=== PATIENT | male | born 1940 | race Caucasian/White ===

== ENCOUNTER → 2017-01-20 12:27 | Outpatient (CLI) | payer MEDICARE, BC ==
[2011-12-19 11:09] VITALS: BMI 2965.9
[~2017-01-20 12:27] MED LIST: ATIVAN1 MG PO; BETAPACE 80 MG80 MG PO; CYMBALTA60 MG PO; FLOMAX0.4 MG PO; HYDROCODON-ACE1 EAC7 PO; NORVASC10 MG PO; PEPCID40 MG PO; VITAMIN B COMPL1 TAB PO
[2017-02-11 08:56] VITALS: BMI 29.1
== END | disposition home or self-care (01) ==
LOC: D.CT 12:27
DX: R05 Cough (principal); G64 Other disorders of peripheral nervous system

== ENCOUNTER 2017-02-11 11:59 | Day surgery (SDC) | payer MEDICARE, BC ==
[~2017-02-11] VITALS: Ht 182.9 cm; Wt 97.3 kg
[2017-02-11 07:52] LABS: BASOPHILS 0.3 % (0.0-2.0); EOSINOPHILS 4.7 % (0-7); HEMATOCRIT 40.9 % (42.0-54.0); HEMOGLOBIN 12.9 g/dL (13.5-17.5); IMMATURE GRANULOCYTES 0.3 % (0-5); LYMPHOCYTES 29.2 % (15-50); MCH 27.7 pg (26.0-34.0); MCHC 31.5 g/dL (31.0-37.0); MEAN PLATELET VOLUME 9.9 fL (7.4-10.4); MONOCYTES 10.6 % (2-11); NEUTROPHILS 54.9 % (40-80); PLATELET COUNT 215 10x3/uL (130-400); RBC 4.65 10x6/uL (4.20-6.10); RDW 14.8 % (11.5-14.5); WBC 6.2 10x3/uL (4.8-10.8)
[2017-02-11 08:07] LABS: ANION GAP 13.6 mmol/L (8-16); CALCIUM 9.1 mg/dL (8.5-10.1); CARBON DIOXIDE 26.4 mmol/L (21.0-32.0); CREATININE - SERUM 1.1 mg/dL (0.6-1.3)
[2017-02-11 08:56] VITALS: BP 132/77; Ht 182.9 cm; Wt 97.3 kg
--- NOTE | 2017-02-11 11:48 | NUR ---
1130 IV DC WITH CATHER INTACT
--- NOTE | 2017-03-11 14:51 | OP ---
PATIENT NAME: MARY BHAKTA MEDICAL RECORD: [id number] :44 LOCATION:D.FORMERLY [facility] ADMISSION DATE: SURGEON: BREANNA WOLFE MD DATE OF OPERATION: 02/11/2017 PREOPERATIVE DIAGNOSES: 1. Gastroesophageal reflux disease. 2. Hypertension. 3. Asthma. 4. Cardiac arrhythmia. POSTOPERATIVE DIAGNOSES: 1. Gastroesophageal reflux disease. 2. Hypertension. 3. Asthma. 4. Cardiac arrhythmia. 5. Hiatal hernia. PROCEDURE: EGD with biopsy. SURGEON: Breanna Wolfe MD. REPORT OF PROCEDURE: An Olympus endoscope was advanced through the mouth and esophagus. We were able to pass through the stomach and into the second portion of the duodenum. There was no sign of any masses or ulcerations in the duodenum, but there is some mild duodenitis as we pulled back. A biopsy was taken of the pylorus. There were no masses, lesions or ulcerations visible, but there was some bowel reflux through the pylorus into the stomach. Retroflexed view showed that there was a small hiatal hernia visible that appeared to be more of a paraesophageal. As we measured this, it looked to be about 3-4 cm in length. As we pulled back to the distal esophagus, there were some mild inflammatory changes with no deep ulcerations visible. Biopsies were taken times 2. At this point, the insufflation was removed and the scope was pulled back slowly through the esophagus and again, no masses, lesions or ulcerations were visualized. COMPLICATIONS: None. CONDITION: Stable. ANESTHESIA: TIVA. BLOOD LOSS: Minimal. TRANSINT:[id number] Voice Confirmation ID: [id number] DOCUMENT ID: [id number] BREANNA WOLFE MD at 1451 CC: SY MITCHELL DO [id number] DICTATION DATE: 02/11/17 1045 UNIX DEVELOPER: 02/11/17 1131 [facility] 02/11/17 [place] [id number]
== END 2017-02-11 12:00 | disposition home or self-care (01) ==
LOC: D.OPS 11:59
PROVIDERS: Surgery
DX: K21.9 Gastro-esophageal reflux disease without esophagitis (principal); K29.50 Unspecified chronic gastritis without bleeding; K20.9 Esophagitis, unspecified; I10 Essential (primary) hypertension; J45.909 Unspecified asthma, uncomplicated; I49.9 Cardiac arrhythmia, unspecified; K44.9 Diaphragmatic hernia without obstruction or gangrene

== ENCOUNTER → 2017-02-14 08:35 | Outpatient (CLI) | payer MEDICARE, BC ==
[2017-02-11 08:56] VITALS: BMI 29.1
== END | disposition home or self-care (01) ==
LOC: D.RAD 08:35
DX: K21.9 Gastro-esophageal reflux disease without esophagitis (principal)

== ENCOUNTER → 2017-06-12 13:44 | Outpatient (CLI) | payer MEDICARE, BC ==
[2017-02-11 08:56] VITALS: BMI 29.1
== END | disposition home or self-care (01) ==
LOC: D.CT 13:44
DX: R51 Headache (principal)

== ENCOUNTER → 2018-02-12 07:23 | Outpatient (CLI) | payer MEDICARE, BC ==
[2017-02-11 08:56] VITALS: BMI 29.1
== END | disposition home or self-care (01) ==
LOC: D.RAD 07:23
DX: R13.10 Dysphagia, unspecified (principal)

== ENCOUNTER 2018-07-19 17:11 | Emergency (ER) | payer MEDICARE, BC ==
[~2018-07-19] VITALS: Ht 182.9 cm; Wt 100.0 kg
[2018-07-19 17:13] VITALS: Ht 182.9 cm; Wt 100.0 kg
[2018-07-19 17:31] LABS: BASOPHILS 0.2 % (0-2); EOSINOPHILS 2.5 % (0-7); HEMATOCRIT 41.5 % (42.0-54.0); HEMOGLOBIN 13.5 g/dL (13.5-17.5); IMMATURE GRANULOCYTES 0.2 % (0-5); LYMPHOCYTES 29.2 % (15-50); MCH 27.8 pg (26.0-34.0); MCHC 32.5 g/dL (31.0-37.0); MCV 85.6 fL (80.0-100.0); MONOCYTES 7.2 % (2-11); NEUTROPHILS 60.7 % (40-80); PLATELET COUNT 256 10x3/uL (130-400); RBC 4.85 10x6/uL (4.20-6.10); RDW 15.1 % (11.5-14.5)
[2018-07-19 17:46] LABS: ALBUMIN 3.6 g/dL (3.4-5.0); ALKALINE PHOSPHATASE 147 U/L (46-116); ALT (SGPT) 41 U/L (10-68); BILIRUBIN - TOTAL 0.23 mg/dL (0.2-1.3); CALC OSMOLALITY 286 mosm/kg (275-300); CALCIUM 8.5 mg/dL (8.5-10.1); CARBON DIOXIDE 28.1 mmol/L (21.0-32.0); CHLORIDE - SERUM 105 mmol/L (98-107); CREATININE - SERUM 1.3 mg/dL (0.6-1.3); GLUCOSE 134 mg/dL (74-106); POTASSIUM - SERUM 4.3 mmol/L (3.5-5.1); PROTEIN - SERUM 7.1 g/dL (6.4-8.2); SODIUM 142 mmol/L (136-145); UREA NITROGEN 17 mg/dL (7-18); eGFR NON AFRICAN AMERICAN 57 mL/min (90-120)
[2018-07-19 18:02] LABS: CKMB 2.3 U/L (0.0-3.6); CREATINE KINASE 182 UL (21-232); TROPONIN-I < 0.017 ng/mL (0.000-0.060)
[2018-07-19 18:52] VITALS: BP 128/70
== END 2018-07-19 18:54 | disposition home or self-care (01) ==
LOC: D.ER 17:11
PROVIDERS: Family Medicine
DX: R07.89 Other chest pain (principal); T44.7X5A Adverse effect of beta-adrenoreceptor antagonists, initial encounter; R53.83 Other fatigue; R06.02 Shortness of breath; R53.1 Weakness; I10 Essential (primary) hypertension

== ENCOUNTER → 2018-11-06 12:33 | Outpatient (CLI) | payer MEDICARE, BC ==
[2018-07-19 17:13] VITALS: BMI 29.9
[~2018-11-06 12:33] MED LIST changes: +IMODIUM2 MG PO; +PHENERGAN25 M1 PO
== END | disposition home or self-care (01) ==
LOC: D.CT 12:33
DX: R10.9 Unspecified abdominal pain (principal)

== ENCOUNTER 2018-11-11 04:07 | Emergency (ER) | payer MEDICARE, BC ==
[~2018-11-11] VITALS: Ht 182.9 cm; Wt 99.1 kg
[~2018-11-11 04:07] MED LIST changes: -IMODIUM2 MG PO; -PHENERGAN25 M1 PO
[2018-11-11 04:12] VITALS: Ht 182.9 cm; Wt 99.1 kg
[2018-11-11 04:48] LABS: BASOPHILS 0.1 % (0-2); EOSINOPHILS 2.2 % (0-7); HEMATOCRIT 43.6 % (42.0-54.0); HEMOGLOBIN 14.4 g/dL (13.5-17.5); IMMATURE GRANULOCYTES 0.1 % (0-5); LYMPHOCYTES 26.6 % (15-50); MCH 28.3 pg (26.0-34.0); MCV 85.7 fL (80.0-100.0); MEAN PLATELET VOLUME 9.8 fL (7.4-10.4); MONOCYTES 9.2 % (2-11); NEUTROPHILS 61.8 % (40-80); PLATELET COUNT 225 10x3/uL (130-400); RBC 5.09 10x6/uL (4.20-6.10); RDW 14.6 % (11.5-14.5); WBC 7.3 10x3/uL (4.8-10.8)
[2018-11-11 05:01] LABS: ALBUMIN 3.7 g/dL (3.4-5.0); ALKALINE PHOSPHATASE 91 U/L (46-116); ALT (SGPT) 33 U/L (10-68); CALC OSMOLALITY 279 mosm/kg (275-300); CALCIUM 9.2 mg/dL (8.5-10.1); CARBON DIOXIDE 25.8 mmol/L (21.0-32.0); CHLORIDE - SERUM 105 mmol/L (98-107); GLUCOSE 111 mg/dL (74-106); POTASSIUM - SERUM 4.1 mmol/L (3.5-5.1); PROTEIN - SERUM 6.9 g/dL (6.4-8.2); SODIUM 141 mmol/L (136-145); UREA NITROGEN 8 mg/dL (7-18); eGFR NON AFRICAN AMERICAN 77 mL/min (90-120)
[2018-11-11 05:03] LABS: APPEARANCE CLEAR (CLEAR); BILIRUBIN NEGATIVE (NEGATIVE); COLOR YELLOW (YELLOW); GLUCOSE NEGATIVE (NEGATIVE); KETONE NEGATIVE (NEGATIVE); NITRITE NEGATIVE (NEGATIVE); PROTEIN NEGATIVE (NEGATIVE); UROBILINOGEN NORMAL (NORMAL)
[2018-11-11 05:04] LABS: BACTERIA NONE SEEN /hpf (NONE SEEN); EPITHELIAL CELLS 0-5 /hpf (0-5); RED CELLS - URINE NONE SEEN /hpf (0-5); WHITE CELLS - URINE 0-5 /hpf (0-5)
[2018-11-11] MEDS ORDERED: PHENERGAN25 M1 PO (05:22)
[2018-11-11] MEDS ORDERED: IMODIUM2 MG PO (05:22)
[2018-11-11 05:58] VITALS: BP 132/79
== END 2018-11-11 05:58 | disposition home or self-care (01) ==
LOC: D.ER 04:07
PROVIDERS: Emergency Medicine
DX: K57.32 Diverticulitis of large intestine without perforation or abscess without bleeding (principal); R53.1 Weakness

== ENCOUNTER 2018-11-22 13:01 | Emergency (ER) | payer MEDICARE, BC ==
[~2018-11-22] VITALS: Ht 182.9 cm; Wt 97.3 kg
[~2018-11-22 13:01] MED LIST changes: +IMODIUM2 MG PO; +PHENERGAN25 M1 PO
[2018-11-22 13:13] VITALS: Ht 182.9 cm; Wt 97.3 kg
[2018-11-22 14:08] LABS: BASOPHILS 0.1 % (0-2); EOSINOPHILS 1.3 % (0-7); HEMATOCRIT 43.4 % (42.0-54.0); HEMOGLOBIN 14.2 g/dL (13.5-17.5); IMMATURE GRANULOCYTES 0.2 % (0-5); LYMPHOCYTES 10.7 % (15-50); MCH 28.5 pg (26.0-34.0); MCHC 32.7 g/dL (31.0-37.0); MCV 87.1 fL (80.0-100.0); MEAN PLATELET VOLUME 10.1 fL (7.4-10.4); MONOCYTES 8.5 % (2-11); NEUTROPHILS 79.2 % (40-80); PLATELET COUNT 186 10x3/uL (130-400); RBC 4.98 10x6/uL (4.20-6.10); WBC 14.7 10x3/uL (4.8-10.8)
[2018-11-22 14:21] LABS: ALBUMIN 3.6 g/dL (3.4-5.0); ANION GAP 11.1 mmol/L (8-16); BILIRUBIN - TOTAL 0.53 mg/dL (0.2-1.3); CALCIUM 8.9 mg/dL (8.5-10.1); CARBON DIOXIDE 27.1 mmol/L (21.0-32.0); CREATININE - SERUM 1.1 mg/dL (0.6-1.3); POTASSIUM - SERUM 4.2 mmol/L (3.5-5.1); PROTEIN - SERUM 7.1 g/dL (6.4-8.2)
[2018-11-22 14:32] LABS: APPEARANCE CLEAR (CLEAR); COLOR STRAW (YELLOW); GLUCOSE NEGATIVE (NEGATIVE); KETONE NEGATIVE (NEGATIVE); NITRITE NEGATIVE (NEGATIVE); PROTEIN 1+ mg/dL (NEGATIVE); SPECIFIC GRAVITY 1.005 (1.005-1.020); UROBILINOGEN NORMAL (NORMAL)
[2018-11-22 14:33] LABS: BILIRUBIN NEGATIVE (NEGATIVE)
[2018-11-22 14:34] LABS: BACTERIA MODERATE /hpf (NONE SEEN); RED CELLS - URINE 0-5 /hpf (0-5)
[2018-11-22] MEDS ORDERED: CIPRO500 MG PO (17:32)
[2018-11-22 17:43] VITALS: BP 144/75
== END 2018-11-22 17:43 | disposition home or self-care (01) ==
LOC: D.ER 13:01
PROVIDERS: Emergency Medicine
DX: N41.9 Inflammatory disease of prostate, unspecified (principal); R50.9 Fever, unspecified; N39.0 Urinary tract infection, site not specified; I10 Essential (primary) hypertension; Z95.0 Presence of cardiac pacemaker

== ENCOUNTER → 2019-01-11 12:37 | Outpatient (CLI) | payer MEDICARE, BC ==
[2018-11-22 13:13] VITALS: BMI 29.1
[~2019-01-11 12:37] MED LIST changes: +CIPRO500 MG PO
--- NOTE | 2019-01-14 11:54 | EC ---
PATIENT:MARY BHAKTA DATE OF SERVICE: 01/11/19 SEX: M MEDICAL RECORD: [id number] DATE OF : 44 LOCATION:[facility] AGE OF PATIENT: 78 ADMISSION DATE: 01/11/19 REFERRING PHYSICIAN: INTERPRETING PHYSICIAN: FELICE PIMENTEL MD ECHOCARDIOGRAM REPORT ECHO CHARGES 4 ECHO COMPLETE Date: 01/11/19 CLINICAL DIAGNOSIS: HTN/AFIB HX OF PACER,HTN,MR/TR/AI ECHOCARDIOGRAPHIC MEASUREMENTS (adult normal given) AC root (d.<3.7cm) 3.9 cm LV Septum d (<1.2 cm> 1.5 cm Valve Excursion 1.3 cm LV Septum (systole) 1.7 cm Left Atria (s.<4.0cm> 4.2 cm LVPW d(<1.2cm) 1.3 cm RV (d.<2.3cm) 3.2 cm LVPW (sytole) 1.7 cm LV diastole(<5.6CM) 5.7 cm MV E-F(>70mm/sec) cm LV systole 4.1 cm LVOT Diameter 1.6 cm MV exc.(>10mm) 1.7 cm Est.ejection fraction (50-75%) % DOPPLER: LVIT cm/sec A 60.0 cm/sec E 83.0 cm/sec LA cm/sec RVSP 41 mmHg LVOT 111 cm/sec AOP1/2T 774 m/s Asc. Ao 183 cm/sec RVOT 85 cm/sec RA cm/sec PA 108 cm/sec AV Gradient Peak 13.35mmHg AV Mean 7.22 mmHg AV Area 1.4 cm MV Gradient Peak 4.95 mmHg MV Mean 1.67 mmHg MV Area cm COMMENTS: Molder Apprentice: Lucia PARIKH Skip Hoist Operator: 1 Dr. Pimentel TAPE# PACS Pericardial Effusion N DATE OF SERVICE: 01/11/2019 Echocardiogram FINDINGS: 1. Left ventricular chamber size is within normal limits. Left ventricular systolic function is normal. Overall ejection fraction estimated at 55%. 2. Left atrium is enlarged at 4.2 cm. Right atrium and right ventricle chamber sizes are as well mildly dilated. 3. Valvular structures have normal structure and motion. ECHOCARDIOGRAM REPORT [id number] MARY BHAKTA 4. Doppler interrogation reveals mild aortic insufficiency, mild mitral regurgitation, mild tricuspid regurgitation. No other valvular insufficiency or stenosis. Pulmonary systolic pressure is estimated at 41 mmHg. 5. No evidence of pericardial effusion or left ventricular thrombus. TRANSINT:[id number] Voice Confirmation ID: [id number] DOCUMENT ID: [id number] FELICE PIMENTEL MD at 1154 CC: [id number] DICTATION DATE: 01/11/19 172 PREPARATION PLANT REPAIRER: 01/11/19 2151 [facility]P CLI 01/11/[address] [id number]
== END | disposition home or self-care (01) ==
LOC: D.HCCARDIO 12:37
PROVIDERS: ATTEND Internal Medicine Interventional Cardiology
DX: I10 Essential (primary) hypertension (principal)

== ENCOUNTER → 2019-03-08 10:45 | Outpatient (CLI) | payer MEDICARE, BC ==
[2018-11-22 13:13] VITALS: BMI 29.1
--- NOTE | 2019-03-10 10:39 | ST ---
PATIENT:MARY BHAKTA MEDICAL RECORD: [id number] SEX: M LOCATION:[facility] ORDER #: ADMISSION DATE: 03/08/19 AGE OF PATIENT: 79 REFERRING PHYSICIAN: INTERPRETING PHYSICIAN: FELICE PATEL MD DATE OF SERVICE: 03/08/2019 Nuclear Stress Test INDICATIONS: Angina, hypertension. He was exercised on standard Lexiscan protocol with 28 mCi of Sestamibi injected at peak stress, 10 mCi used previously for rest images. FINDINGS: Gated SPECT reveals a preserved ejection fraction at 56% with good wall motioning and thickening and brightening throughout all segments. SPECT IMAGING: Cardiolite was used as myocardial perfusion agent. There is reversibility inferiorly and apically. This includes basal, mid, apical inferior segments as well as the apex itself. The degree of reversibility is mild to moderate. The amount of myocardium involved is moderate. OVERALL IMPRESSION: 1. This is an abnormal nuclear stress test, reversible ischemia inferiorly and apically. 2. Gated SPECT reveals preserved ejection fraction greater than 50%. 3. With this patient with ongoing symptomatology, the current scan does suggest the presence with hemodynamically significant coronary artery disease. We will proceed with coronary angiography as followup study. TRANSINT:[id number] Voice Confirmation ID: [id number] DOCUMENT ID: [id number] FELICE PATEL MD at 1039 CC: [id number] DICTATION DATE: 03/08/19 1558 CLINICAL SCIENCES PROFESSOR: 03/09/[address] [facility] CLI 03/08/19 [place] [id number]
== END | disposition home or self-care (01) ==
LOC: D.NM 10:45 → D.HCCARDIO 10:45
PROVIDERS: ATTEND Internal Medicine Interventional Cardiology
DX: I20.9 Angina pectoris, unspecified (principal)